=== PATIENT | female | born 1980 | race Caucasian/White ===

== ENCOUNTER 2016-08-30 08:41 | Emergency (ER) | payer OTHER ==
[2016-08-30 08:53] VITALS: BP 171/108
[2016-08-30] MEDS ORDERED: ALBUTEROL SULFATE HFA (90 MCG/PUFF) 8 GM MDI (1 MDI/ER DISP) IH ONE (09:59)
[2016-08-30] MEDS ORDERED: PENICILLIN V POTASSIUM 500 MG TABLET PO ONE (09:59)
[2016-08-30] MEDS ORDERED: PREDNISONE 20 MG TABLET PO ONE (09:59)
--- NOTE | 2016-08-30 10:13 | ER Document Report ---
ED General - General Chief Complaint: Sore Throat Stated Complaint: SORE THROAT TRAVEL OUTSIDE OF THE [place] IN LAST 30 DAYS: No - HPI Patient complains to provider of: cough congestion sore throat Notes: Patient coming in for evaluation of cough congestion sore throat. Patient also states that she has a dental abscess proximal and tooth #20 patient states that she popped the abscess at home did have positive posterior patient states she is waiting for dental referral. Sick contacts around her . Patient denies any recent travel patient is a smoker. States nonproductive cough feeling of unwell states she's been taking [id number] Sudafed patient states he does have a history of hypertension however did not take her blood pressure medication this morning. - Related Data Allergies/Adverse Reactions: sulfamethoxazole [From Bactrim] Allergy (Severe, Verified 08/30/16 08:53) VOMITING propoxyphene napsylate [From Darvocet-N 100] Allergy (Verified 08/30/16 08:53) bladder infection trimethoprim [From Bactrim] Allergy (Verified 08/30/16 08:53) VOMITING Past Medical History - Social History Smoking Status: Current Every Day Smoker Chew tobacco use (# tins/day): No Frequency of alcohol use: None Drug Abuse: None Family History: Reviewed & Not Pertinent, CAD, CVA, DM, Malignancy Patient has suicidal ideation: No Patient has homicidal ideation: No - Past Medical History Cardiac Medical History: Reports: Hx Hypertension - BP meds x15 years, Hx of high BP during Denies: Hx Heart Attack Pulmonary Medical History: Reports: Hx Asthma Denies: Hx Bronchitis, Hx COPD, Hx Pneumonia Neurological Medical History: Reports: Hx Seizures - last time over year ago Renal/ Medical History: Denies: Hx Peritoneal Dialysis Musculoskeltal Medical History: Reports Hx Arthritis - Bilateral Knees and elbows, Reports Hx Fibromyalgia Past Surgical History: Reports: Hx Appendectomy, Hx Section - x2, Hx Cholecystectomy, Hx Herniorrhaphy, Hx Tubal Ligation - Immunizations Immunizations up to date: Yes Hx Diphtheria, Pertussis, Tetanus Vaccination: Yes Review of Systems - Review of Systems Constitutional: No symptoms reported EENT: Other - Cough congestion sore throat Cardiovascular: No symptoms reported Respiratory: No symptoms reported Gastrointestinal: No symptoms reported Genitourinary: No symptoms reported Female Genitourinary: No symptoms reported Musculoskeletal: No symptoms reported Skin: No symptoms reported Hematologic/Lymphatic: No symptoms reported Neurological/Psychological: No symptoms reported -: Yes All other systems reviewed and negative Physical Exam - Vital signs Vitals: Temp Pulse Resp BP Pulse Ox 98.3 F 99 20 171/108 H 94 08/30/16 08:51 08/30/16 08:51 08/30/16 08:51 08/30/16 08:51 08/30/16 08:51 Interpretation: Normal - General General appearance: Appears well, Alert - HEENT Head: Normocephalic, Atraumatic Eyes: Normal Conjunctiva: Normal Cornea: Normal Extraocular movements intact: Yes Eyelashes: Normal Pupils: PERRL Ears: Normal External canal: Normal Tympanic membrane: Normal Mucous membranes: Normal Teeth diagram: 1 - Area cellulitis and abscess formation poor dentition throughout Pharynx: Normal Neck: Normal - Respiratory Respiratory status: No respiratory distress Chest status: Nontender Breath sounds: Wheezing Chest palpation: Normal - Cardiovascular Rhythm: Regular Heart sounds: Normal auscultation Murmur: No - Abdominal Inspection: Normal Distension: No distension Bowel sounds: Normal Tenderness: Nontender Organomegaly: No organomegaly - Back Back: Normal, Nontender - Extremities General upper extremity: Normal inspection, Nontender, Normal color, Normal ROM , Normal temperature General lower extremity: Normal inspection, Nontender, Normal color, Normal ROM , Normal temperature, Normal weight bearing. No: Jimmy's sign - Neurological Neuro grossly intact: Yes Cognition: Normal Orientation: AAOx4 Mani Coma Scale Eye Opening: Spontaneous Mcgill Coma Scale Verbal: Oriented Mcgill Coma Scale Motor: Obeys Commands Mcgill Coma Scale Total: 15 Speech: Normal Motor strength normal: LUE, RUE, LLE, RLE Sensory: Normal - Psychological Associated symptoms: Normal affect, Normal mood - Skin Skin Temperature: Warm Skin Moisture: Dry Skin Color: Normal Course - Re-evaluation Re-evalutation: 08/30/16 15:19 Patient swallows returned negative. More likely patient has a viral URI. Patient was started on Pen-Vee K for her dental cellulitis and abscess formation. Patient is encouraged follow-up with dentist. Patient's encouraged to stop smoking will treat patient with bronchodilators and steroids for her wheezing. - Vital Signs Vital signs: Temp Pulse Resp BP Pulse Ox 98.3 F 99 20 171/108 H 94 08/30/16 08:51 08/30/16 08:51 08/30/16 08:51 08/30/16 08:51 08/30/16 08:51 Discharge - Discharge Clinical Impression: Dental abscess, Bronchitis Condition: Good Disposition: HOME, SELF-CARE Instructions: Sore Throat ([facility]), Bronchitis With Bronchospasm (Wheezing) ([facility]) , Dental Infection or Abscess ([facility]), Dentist Additional Instructions: Take antibiotics as prescribed for your dental abscess. There examination days consistent with bronchitis. Please use the inhaler that we gave you here in ER 2 puffs every 4 hours for the next 5 days. Please take the steroids as directed. Prescriptions: Penicillin V Potassium [Penicillin Vk 500 mg Tablet] 500 mg PO BID #20 tablet Prednisone [Deltasone 20 mg Tablet] 3 tab PO DAILY 5 Days Forms: Return to Work Referrals: MELLY MACKEY MD [Primary Care Provider] - Follow up as needed
== END 2016-08-30 10:31 | disposition home or self-care (01) ==
LOC: ER 08:41
DX: K04.7 Periapical abscess without sinus (principal); J40 Bronchitis, not specified as acute or chronic; J02.9 Acute pharyngitis, unspecified; F17.200 Nicotine dependence, unspecified, uncomplicated; I10 Essential (primary) hypertension; Z88.3 Allergy status to other anti-infective agents; Z90.49 Acquired absence of other specified parts of digestive tract; Z98.51 Tubal ligation status
CPT/HCPCS: 99283; 87070; 87880; 87077; 87804; J7512; J3490

== ENCOUNTER 2016-11-03 18:01 | Emergency (ER) | payer SELFPAY ==
[2016-11-03 18:34] VITALS: BP 170/85
[2016-11-03] MEDS ORDERED: OXYCODONE-ACETAMINOPHEN 5-325 MG TABLET PO ONE (20:22)
[2016-11-03] MEDS ORDERED: DIPH/PERTUSS(ACELL)/TETANUS VAC/PF 0.5 ML SYR (>=10YO) IM ONE (20:23)
[2016-11-03] MEDS ORDERED: LIDOCAINE 1%/EPINEPHRINE INJ 20 ML VIAL INJ ONE (20:23)
--- NOTE | 2016-11-03 20:25 | ER Document Report ---
ED Fall - General Chief Complaint: Fall Stated Complaint: FALL/RIGHT SHOULDER,LEG PAIN Time seen by provider: 20:15 Notes: Patient is a 36-year-old female that comes emergency department for chief complaint of a fall injury, she states that she tripped on a step, she scraped her blair on the right side, landed on her right knee causing a wound, and she fell forward causing impact an injury to her shoulder and right collarbone. She denies hitting her head. She denies loss of consciousness, neck pain, focal numbness or weakness, incontinence. She denies chest pain or abdominal pain. She is not on a blood thinner. Her tetanus is not up-to-date within 5 years. TRAVEL OUTSIDE OF THE [place] IN LAST 30 DAYS: No - Related data Allergies/Adverse Reactions: sulfamethoxazole [From Bactrim] Allergy (Severe, Verified 11/03/16 18:25) VOMITING propoxyphene napsylate [From Darvocet-N 100] Allergy (Verified 11/03/16 18:25) bladder infection trimethoprim [From Bactrim] Allergy (Verified 11/03/16 18:25) VOMITING Past Medical History - General Information source: Patient - Social History Smoking Status: Never Smoker Drug Abuse: None Lives with: Spouse/Significant other Family History: Reviewed & Not Pertinent, CAD, CVA, DM, Malignancy Patient has suicidal ideation: No Patient has homicidal ideation: No - Past Medical History Cardiac Medical History: Reports: Hx Hypertension - BP meds x15 years, Hx of high BP during Denies: Hx Heart Attack Pulmonary Medical History: Reports: Hx Asthma Denies: Hx Bronchitis, Hx COPD, Hx Pneumonia Neurological Medical History: Reports: Hx Seizures - last time over year ago Renal/ Medical History: Denies: Hx Peritoneal Dialysis Musculoskeltal Medical History: Reports Hx Arthritis - Bilateral Knees and elbows, Reports Hx Fibromyalgia Past Surgical History: Reports: Hx Appendectomy, Hx Section - x2, Hx Cholecystectomy, Hx Herniorrhaphy, Hx Tubal Ligation - Immunizations Immunizations up to date: Yes Hx Diphtheria, Pertussis, Tetanus Vaccination: Yes Review of Systems - Review of Systems Constitutional: No symptoms reported EENT: No symptoms reported Cardiovascular: No symptoms reported Respiratory: No symptoms reported Gastrointestinal: No symptoms reported Genitourinary: No symptoms reported Female Genitourinary: No symptoms reported Musculoskeletal: See HPI Skin: See HPI Hematologic/Lymphatic: No symptoms reported Neurological/Psychological: No symptoms reported Physical Exam - Vital signs Vitals: Temp Pulse Resp BP Pulse Ox 98.9 F 98 16 170/85 H 94 11/03/16 18:25 11/03/16 18:25 11/03/16 18:25 11/03/16 18:25 11/03/16 18:25 Interpretation: Normal - General General appearance: Appears well, Alert In distress: None - Patient is awake and alert, she moves somewhat stiffly and moves pain, she is wearing a fashioned sling for her right arm - HEENT Head: Normocephalic, Atraumatic. No: Abrasions, Ecchymosis, Open wounds Eyes: Normal Conjunctiva: Normal Extraocular movements intact: Yes Eyelashes: Normal Pupils: PERRL Mouth/Lips: Normal Mucous membranes: Normal Pharynx: Normal Neck: Normal - Respiratory Respiratory status: No respiratory distress Chest status: Nontender Breath sounds: Normal. No: Decreased air movement, Wheezing Chest palpation: Normal - Cardiovascular Rhythm: Regular. No: Tachycardia Heart sounds: Normal auscultation, S1 appreciated, S2 appreciated Murmur: No - Abdominal Inspection: Normal Distension: No distension Bowel sounds: Normal Tenderness: Nontender Organomegaly: No organomegaly - Back Back: Normal, Nontender - Extremities General upper extremity: Other - Patient is tender over the right clavicle and over the right proximal humerus, pain when moving the shoulder, small abrasion over the elbow but no bony tenderness and full range of motion of the elbow, normal wrist exam, normal distal neurovascular exam. General lower extremity: Other - Small abrasions over the right anterior distal tibia, normal ankle and foot exam, there is a wound over the patella that is about 2 cm in length, partial-thickness, vertical there is small amount of ecchymosis around the wound over the knee. No hip tenderness. No other lower extremity abnormalities noted - Neurological Neuro grossly intact: Yes Cognition: Normal Orientation: AAOx4 Mani Coma Scale Eye Opening: Spontaneous Mani Coma Scale Verbal: Oriented [place] Coma Scale Motor: Obeys Commands [place] Coma Scale Total: 15 Speech: Normal Motor strength normal: LUE, RUE, LLE, RLE Sensory: Normal - Psychological Associated symptoms: Normal affect, Normal mood - Skin Skin Temperature: Warm Skin Moisture: Dry Skin Color: Normal Course - Re-evaluation Re-evalutation: X-ray imaging of the shoulder, clavicle, knee with no acute abnormalities. Patient has pain over the shoulder and difficult range of motion, suspect rotator cuff injury. Patient requesting sling for comfort, this was provided for her, demonstrated range of motion exercises and cautioned against wearing at all times because of frozen shoulder. Wounds clean, repaired, dressed, discussed wound care, return precautions. Patient states understanding and agreement. - Vital Signs Vital signs: Temp Pulse Resp BP Pulse Ox 98.9 F 98 16 170/85 H 94 11/03/16 18:25 11/03/16 18:25 11/03/16 18:25 11/03/16 18:25 11/03/16 18:25 Procedures - Immobilization right arm Pre-Proc Neuro Vasc Exam: Normal Immobilizer type: Sling Performed by: PCT Post-Proc Neuro Vasc Exam: Normal Alignment checked and good: Yes - Laceration/Wound Repair right knee #1 Wound length (cm): 2 Wound's Depth, Shape: Irregular, Flap Laceration pre-procedure: Sterile PPE donned, Sterile drapes applied, Other - Surgical cleanser Anesthetic type: 1% Lidocaine Volume Anesthetic (mLs): 6 Wound explored: Clean, No foreign body removed Irrigated w/ Saline (mLs): 50 Wound Repaired With: Sutures Suture Size/Type: 4:0, Nylon Number of Sutures: 3 Post-procedure wound care: Sterile dressing applied Post-procedure NV exam normal: Yes Complications: No right knee #2 Wound length (cm): 1.5 Wound's Depth, Shape: Linear Laceration pre-procedure: Sterile PPE donned, Sterile drapes applied, Other - Surgical cleanser Anesthetic type: 1% Lidocaine Volume Anesthetic (mLs): 3 Wound explored: Clean, No foreign body removed Irrigated w/ Saline (mLs): 40 Wound Repaired With: Sutures Suture Size/Type: 4:0, Nylon Number of Sutures: 3 Layer Closure?: No Post-procedure wound care: Sterile dressing applied Post-procedure NV exam normal: Yes Complications: No Discharge - Discharge Clinical Impression: Skin abrasion Fall Qualifiers: Encounter type: initial encounter Qualified Code(s): W19.XXXA - Unspecified fall, initial encounter Knee laceration Qualifiers: Encounter type: initial encounter Laterality: right Qualified Code(s): S81.011A - Laceration without foreign body, right knee, initial encounter Right shoulder pain Qualifiers: Chronicity: acute Qualified Code(s): M25.511 - Pain in right shoulder Right knee pain Qualifiers: Chronicity: acute Qualified Code(s): M25.561 - Pain in right knee Condition: Stable Additional Instructions: Imaging does not show fracture or dislocation. Wear the sling for comfort, ice your shoulder and your knee, take the arm out of the sling and performed the range of motion exercises regularly as discussed to begin to regain full range of motion. Follow-up with orthopedics for additional treatment. Sutures should come out in 7-10 days. Keep clean with soap and water, apply thin film of topical antibiotic with dressing. Return to the emergency department for any concerning symptoms including signs of infection such as redness, swelling, fever, etc. Prescriptions: Cyclobenzaprine HCl [Flexeril 10 mg Tablet] 10 mg PO TIDP PRN #20 tab PRN Reason: Forms: Elevated Blood Pressure Referrals: MELLY MACKEY MD [Primary Care Provider] - Follow up as needed ZAC HENSON MD [ACTIVE STAFF] - Follow up as needed
[2016-11-03] MEDS ORDERED: HYDROCODONE/ACETAMINOPHEN 5-325 MG 6 TAB/DSPK PO PRN (22:32)
== END 2016-11-03 23:00 | disposition home or self-care (01) ==
LOC: ER 18:01
PROC: 0HQKXZZ Repair Right Lower Leg Skin, External Approach (ICD-10-PCS; principal; 2016-11-03)
DX: S81.011A Laceration without foreign body, right knee, initial encounter (principal); S50.311A Abrasion of right elbow, initial encounter; S80.811A Abrasion, right lower leg, initial encounter; M25.511 Pain in right shoulder; M25.561 Pain in right knee; W10.9XXA Fall (on) (from) unspecified stairs and steps, initial encounter; I10 Essential (primary) hypertension; Z88.1 Allergy status to other antibiotic agents; Z88.5 Allergy status to narcotic agent; J45.909 Unspecified asthma, uncomplicated
CPT/HCPCS: 99283; 90471; 73564; 73030; 90715; 12002; L3650; J3490

== ENCOUNTER 2018-09-05 14:06 | Emergency (ER) | payer OTHER ==
[2018-09-05] MEDS ORDERED: MORPHINE SULFATE 10 MG/ML INJ IV ONE (14:32)
[2018-09-05] MEDS ORDERED: ONDANSETRON HCL INJ/PF 4 MG/2 ML SDV IV ONE (14:32)
[2018-09-05 15:03] LABS: ABSOLUTE EOSINOPHILS # (AUTO) 0.2 10^3/uL (0.0-0.6); ABSOLUTE LYMPHOCYTES (AUTO) 2.2 10^3/uL (0.5-4.7); ABSOLUTE MONOCYTES (AUTO) 0.4 10^3/uL (0.1-1.4); ABSOLUTE NEUT (AUTO) 5.1 10^3/uL (1.7-8.2); BASOPHILS % (AUTO) 0.2 % (0-2); EOSINOPHILS % (AUTO) 2.1 % (0-6); HEMATOCRIT 36.4 % (36.0-47.0); HEMOGLOBIN 11.8 g/dL (12.0-15.5); LYMPHOCYTES % (AUTO) 28.1 % (13-45); MEAN CORPUSCULAR HEMOGLOBIN 25.8 pg (27.0-33.4); MEAN CORPUSCULAR HGB CONC 32.4 g/dL (32.0-36.0); MEAN CORPUSCULAR VOLUME 80 fl (80-97); MONOCYTES % (AUTO) 4.7 % (3-13); PLATELET COUNT 231 10^3/uL (150-450); RED BLOOD COUNT 4.57 10^6/uL (3.72-5.28); RED CELL DISTRIBUTION WIDTH 17.5 % (11.5-14.0); SEGMENTED NEUTROPHILS % (AUTO) 64.9 % (42-78); TOTAL CELLS COUNTED % (AUTO) 100 %; WHITE BLOOD COUNT 7.8 10^3/uL (4.0-10.5)
[2018-09-05 15:21] LABS: ANION GAP 6 (5-19); BLOOD UREA NITROGEN 11 mg/dL (7-20); CALCIUM 8.7 mg/dL (8.4-10.2); CARBON DIOXIDE 34 mmol/L (22-30); CHLORIDE 101 mmol/L (98-107); GLUCOSE 139 mg/dL (75-110); POTASSIUM 4.1 mmol/L (3.6-5.0); SODIUM 140.9 mmol/L (137-145)
[2018-09-05 15:24] LABS: ALCOHOL < 10 mg/dL (NONE DETECTED)
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
[2018-09-05 18:32] VITALS: BP 150/110
[2018-09-05] MEDS ORDERED: IBUPROFEN 800 MG TABLET PO ONE (18:37)
--- NOTE | 2018-09-05 22:19 | EKG REPORT ---
SEVERITY:- ABNORMAL ECG - SINUS RHYTHM NONSPECIFIC T ABNORMALITIES, LATERAL LEADS BORDERLINE PROLONGED QT INTERVAL : Confirmed by: Figueroa Bo 05-Sep-2018 22:18:15
== END 2018-09-05 18:49 | disposition home or self-care (01) ==
LOC: ER 14:06
DX: S20.211A Contusion of right front wall of thorax, initial encounter (principal); S86.811A Strain of other muscle(s) and tendon(s) at lower leg level, right leg, initial encounter; R10.32 Left lower quadrant pain; L03.211 Cellulitis of face; R22.0 Localized swelling, mass and lump, head; K42.9 Umbilical hernia without obstruction or gangrene; V49.40XA Driver injured in collision with unspecified motor vehicles in traffic accident, initial encounter; Z88.3 Allergy status to other anti-infective agents; F17.200 Nicotine dependence, unspecified, uncomplicated; I10 Essential (primary) hypertension; Z90.49 Acquired absence of other specified parts of digestive tract; Z98.51 Tubal ligation status
CPT/HCPCS: 93005; 99284; 96374; 96375; 36415; 80307; 84703; 85025; 80048; 73564; 70450; 71260; 72125; 74177; 93010; J2270; J2405

== ENCOUNTER 2019-12-03 13:34 | Emergency (ER) | payer OTHER ==
[2019-12-03] MEDS ORDERED: NORMAL SALINE 1000 ML 1,000 ML IV ONE (14:24)
[2019-12-03] MEDS ORDERED: PROCHLORPERAZINE EDISYLATE INJ 10 MG/2 ML VIAL IV ONE (14:24)
[2019-12-03] MEDS ORDERED: KETOROLAC TROMETHAMINE INJ/PF 30 MG/1 ML SDV IV ONE (14:25)
--- NOTE | 2019-12-03 14:26 | ER Document Report ---
ED GI/ - General Chief Complaint: Nausea/Vomiting/Diarrhea Stated Complaint: NAUSEA,HEADACHE Time Seen by Provider: 12/03/19 14:05 Primary Care Provider: GEORGE GAMING FNP-C [Primary Care Provider] - Follow up as needed Mode of Arrival: Ambulatory Information source: Patient Notes: 39-year-old female presents to the emergency department with a 4-day history of nausea vomiting diarrhea. She states she is also now developed a headache. She has a history of migraines apparently this headache does not fit the normal migraine pattern. She states that she has had bilious vomiting yellowish in color no blood noted. She is also had a multiple episodes of diarrhea with watery stools and no blood noted. She complains of some cramping pain with bowel movements however no other significant abdominal pain she has a anterior ventral hernia which she states is been about the same occasionally slides out and is painful with movement and or lifting. She denies fever. TRAVEL OUTSIDE OF THE [place] IN LAST 30 DAYS: No - Related Data Allergies/Adverse Reactions: sulfamethoxazole [From Bactrim] Allergy (Severe, Verified 11/03/16 18:25) VOMITING propoxyphene napsylate [From Darvocet-N 100] Allergy (Verified 11/03/16 18:25) bladder infection trimethoprim [From Bactrim] Allergy (Verified 11/03/16 18:25) VOMITING Past Medical History - Social History Smoking Status: Current Every Day Smoker Family History: Reviewed & Not Pertinent, CAD, CVA, DM, Malignancy Patient has homicidal ideation: No - Past Medical History Cardiac Medical History: Reports: Hx Hypertension - BP meds x15 years, Hx of high BP during Denies: Hx Heart Attack Pulmonary Medical History: Reports: Hx Asthma Denies: Hx Bronchitis, Hx COPD, Hx Pneumonia Neurological Medical History: Reports: Hx Seizures - last time over year ago Renal/ Medical History: Denies: Hx Peritoneal Dialysis Musculoskeletal Medical History: Reports Hx Arthritis - Bilateral Knees and elbows, Reports Hx Fibromyalgia Past Surgical History: Reports: Hx Appendectomy, Hx Section - x2, Hx Cholecystectomy, Hx Herniorrhaphy, Hx Tubal Ligation - Immunizations Immunizations up to date: Yes Hx Diphtheria, Pertussis, Tetanus Vaccination: Yes Review of Systems - Review of Systems Notes: Constitutional: Negative for fever. HENT: Negative for sore throat. Eyes: Negative for visual changes. Cardiovascular: Negative for chest pain. Respiratory: Negative for shortness of breath. Gastrointestinal: + Nausea and vomiting, + diarrhea Genitourinary: Negative for dysuria. Musculoskeletal: Negative for back pain. Skin: Negative for rash. Neurological: Negative for headaches, weakness or numbness. 10 point ROS negative except as marked above and in HPI. Physical Exam - Vital signs Vitals: Temp Pulse Resp BP Pulse Ox 98.6 F 111 H 16 165/83 H 96 12/03/19 13:45 12/03/19 13:45 12/03/19 13:45 12/03/19 13:45 12/03/19 13:45 - Notes Notes: PHYSICAL EXAMINATION: Physical Exam: General: Well-nourished well-developed 39-year-old female in no acute distress HEENT: NC/AT, pupils equal round and reactive to light, MM moist,nares clear, oropharynx clear, airway patent Neck: supple, no adenopathy, no masses. Good range of motion Lungs: clear, no wheezing, no rales no rhonchi CVS: Regular rate and rhythm no murmur gallop or rub Abdomen: Soft, active, nontender, + a right mid abdominal anterior wall ventral hernia easily reduced and nontender., No hepatosplenomegaly Ext: No edema, clubbing or cyanosis. Neuro: Alert and responsive, moving all 4 extremities on command, cranial nerves intact, no focal findings Skin: Intact no open lesions, no rash PSYCH: Normal mood, normal affect. Course - Re-evaluation Re-evalutation: 12/03/19 16:03 Patient received Compazine and IV fluids, feels much better. CBC and labs were reviewed, patient is normal findings with a normal CT scan, ventral hernia noted. She has been discharged with Zofran for nausea and instructions on diet modifications with diarrhea nausea and vomiting. She is also instructed to follow-up with her primary care doctor as needed. - Vital Signs Vital signs: Temp Pulse Resp BP Pulse Ox 98.6 F 112 H 18 165/83 H 95 12/03/19 14:01 12/03/19 14:00 12/03/19 14:00 12/03/19 14:00 12/03/19 14:00 - Laboratory Result Diagrams: 12/03/19 13:55 12/03/19 13:55 Laboratory results interpreted by me: 12/03/19 12/03/19 13:55 13:55 WBC 11.9 H RBC 5.69 H MCV 77 L MCH 24.8 L RDW 19.4 H Absolute Neuts (auto) 8.5 H Glucose 139 H - Diagnostic Test Radiology reviewed: Image reviewed, Reports reviewed - CT abdomen and pelvis with IV contrast: Right ventral hernia with fatty material, no obstruction and no ischemic changes. CT scan is otherwise normal. Discharge - Discharge Clinical Impression: Nausea vomiting and diarrhea, Gastroenteritis, Ventral hernia without obstructi on or gangrene Condition: Good Disposition: HOME, SELF-CARE Instructions: Antinausea Medication ([facility]), Gastroenteritis (adult) ([facility], [facility]) Additional Instructions: You were seen in the emergency department with nausea vomiting and diarrhea likely viral gastroenteritis. Please modify your diet with clear liquids and light carbohydrates until the diarrhea has completely cleared. You may use Zofran for nausea, push fluids, follow-up with your primary care doctor as needed. If your symptoms are worsening or if you have other concerns, you may return to the emergency department for further evaluation and treatment. HOME CARE INSTRUCTIONS & INFORMATION: Thank you for choosing us for your medical needs. We hope you're satisfied with the care you received. After you leave, you must properly care for your problem and, at the same time, observe its progress. Any condition can change. Some illnesses can change rapidly over hours or days. If your condition worsens, return to the Emergency Department or see your physician promptly. ABOUT YOUR X-RAYS AND EKG'S: If you had an EKG or X-rays taken, they have been read by the Emergency Physician. The X-rays and EKG's will also be read by a Radiologist or Industrial Design Engineer within 24 hours. If discrepancies are noted, you will be notified by telephone. Please be certain the ED has a correct telephone number & address where you can be reached. Also, realize that some fractures or abnormalities do not show up on initial X-rays. If your symptoms continue, see your physician. ABOUT YOUR LABORATORY TEST: If you had laboratory tests, the results have been reviewed by the Emergency Physician. Some test results (for example cultures) may not be available for several days. You will be contacted if any test result shows you need additional treatment. Please be certain the ED has a correct telephone number and address where you can be reached. ABOUT YOUR MEDICATIONS: You will receive instructions on how to take your medicine on the prescription label you receive. Additional information may be provided by the Pharmacy. If you have questions afterwards, call the ED for clarification or further instructions. Some prescribed medications may cause drowsiness. Do not perform tasks such as driving a car or operating machinery w ithout consulting your Pharmacist. If you feel you need a refill of pain medication, your condition will need re-evaluation. Please do not call for a refill of any medication. ABOUT YOUR SIGNATURE: Signature of this document acknowledges to followin. Understanding that you received emergency treatment and that you may be released before al medical problems are known or treated. Please be certain the ED has a correct phone number & address where you can be reached. 2. Acknowledgement that you will arrange for follow-up care as recommended. 3. Authorization for the Emergency Physician to provide information to your follow-up Physician in order to maximize your care. AT ANY TIME, IF YOUR SYMPTOMS CHANGE SIGNIFICANTLY OR WORSEN OR YOU DEVELOP NEW SYMPTOMS, RETURN TO THE EMERGENCY DEPARTMENT IMMEDIATELY FOR RE-EVALUATION. OUR GOAL IS TO PROVIDE EXCELLENT MEDICAL CARE! WE HOPE THAT WE HAVE MET YOUR EXPECTATIONS DURING YOUR EMERGENCY DEPARTMENT VISIT AND THAT YOU FEEL YOU HAVE RECEIVED EXCELLENT CARE! Prescriptions: Ondansetron [Zofran Odt 4 mg Tablet] 1 - 2 tab PO Q4H PRN #[id number] tab.rapdis PRN Reason: For Nausea/Vomiting Referrals: GEORGE GAMING FNP-C [Primary Care Provider] - Follow up as needed
[2019-12-03 14:30] LABS: ABSOLUTE BASOPHILS # (AUTO) 0.1 10^3/uL (0.0-0.2); ABSOLUTE EOSINOPHILS # (AUTO) 0.2 10^3/uL (0.0-0.6); ABSOLUTE LYMPHOCYTES (AUTO) 2.7 10^3/uL (0.5-4.7); ABSOLUTE MONOCYTES (AUTO) 0.5 10^3/uL (0.1-1.4); ABSOLUTE NEUT (AUTO) 8.5 10^3/uL (1.7-8.2); BASOPHILS % (AUTO) 0.5 % (0-2); EOSINOPHILS % (AUTO) 1.6 % (0-6); HEMOGLOBIN 14.1 g/dL (12.0-15.5); LYMPHOCYTES % (AUTO) 22.4 % (13-45); MEAN CORPUSCULAR HEMOGLOBIN 24.8 pg (27.0-33.4); MEAN CORPUSCULAR HGB CONC 32.1 g/dL (32.0-36.0); MEAN CORPUSCULAR VOLUME 77 fl (80-97); MONOCYTES % (AUTO) 4.2 % (3-13); PLATELET COUNT 366 10^3/uL (150-450); RED BLOOD COUNT 5.69 10^6/uL (3.72-5.28); RED CELL DISTRIBUTION WIDTH 19.4 % (11.5-14.0); SEGMENTED NEUTROPHILS % (AUTO) 71.3 % (42-78); TOTAL CELLS COUNTED % (AUTO) 100 %; WHITE BLOOD COUNT 11.9 10^3/uL (4.0-10.5)
[2019-12-03 14:45] LABS: ALBUMIN 4.3 g/dL (3.5-5.0); ALKALINE PHOSPHATASE 107 U/L (38-126); ANION GAP 9 (5-19); ASPARTATE AMINO TRANSFERASE 21 U/L (14-36); BILIRUBIN,DIRECT 0.1 mg/dL (0.0-0.4); BILIRUBIN,TOTAL 0.4 mg/dL (0.2-1.3); BLOOD UREA NITROGEN 9 mg/dL (7-20); CARBON DIOXIDE 30 mmol/L (22-30); CHLORIDE 99 mmol/L (98-107); GLUCOSE 139 mg/dL (75-110); POTASSIUM 4.2 mmol/L (3.6-5.0)
--- NOTE | 2019-12-03 15:39 | RADIOLOGY REPORT (SQ) ---
EXAM DESCRIPTION: CT ABD/PELVIS WITH IV ONLY IMAGES COMPLETED DATE/TIME: 12/03/2019 3:19 pm REASON FOR STUDY: abdominal pain COMPARISON: CT of the abdomen pelvis with contrast from 09/05/2018. TECHNIQUE: CT scan of the abdomen and pelvis performed using helical scanning technique with dynamic intravenous contrast injection. No oral contrast. Images reviewed with lung, soft tissue, and bone windows. Reconstructed coronal and sagittal MPR images reviewed. Delayed images for evaluation of the urinary system also acquired. All images stored on PACS. All CT scanners at this facility use dose modulation, iterative reconstruction, and/or weight based d osing when appropriate to reduce radiation dose to as low as reasonably achievable (ALARA). [facility]: Dose Right [facility]: CareDose [facility]: Dose Right [facility]: Teradose 4D [facility]: [employer] CONTRAST TYPE AND DOSE: Contrast/concentration: Isovue 350.00 mg/ml; Total Contrast Delivered: 99.0 ml; Total Saline Delivered: 57.0 ml RENAL FUNCTION: GFR > 60. RADIATION DOSE: CT Rad equipment meets quality standard of care and radiation dose reduction techniq ues were employed. CTDIvol: 19.2 - 21.1 mGy. DLP: 2332 mGy-cm. LIMITATIONS: None. FINDINGS: LOWER CHEST: No acute findings. LIVER: The relative hypoattenuation hepatic parenchyma compared to the splenic parenchyma on the port al venous phase is suggestive and aligned hepatic steatosis. The portal veins are patent. There is no hepatic mass. SPLEEN: The spleen is borderline enlarged and it measures 13.8 cm in AP diameter. PANCREAS: No acute abnormality of the pancreas. GALLBLADDER: No abnormality that is apparent on CT. ADRENAL GLANDS: No mass or asymmetry. RIGHT KIDNEY AND URETER: No solid mass, hydronephrosis, nephrolithiasis, hydroureter or ureterolithia sis. LEFT KIDNEY AND URETER: No solid mass, hydronephrosis, nephrolithiasis, hydroureter or ureterolithia sis. AORTA AND VESSELS: No aneurysm or dissection of the abdominal aorta. RETROPERITONEUM: No retroperitoneal adenopathy, hemorrhage or mass. BOWEL AND PERITONEAL CAVITY: No bowel obstruction, bowel wall thickening or pericolonic/ perienteric inflammation. No mesenteric adenopathy, free intraperitoneal fluid or mesenteric/ omental inflammati on. APPENDIX: Unable to identify the appendix. There is no pericecal inflammation. PELVIS: No abnormality of the uterus or adnexa that is apparent on CT. The urinary bladder is disten ded and normal in appearance. ABDOMINAL WALL: Paramedian ventral hernia that contains fat and a portion of the transverse colon. BONES: No fracture or osseous lesion. OTHER: No other finding. IMPRESSION: 1. No acute intra-abdominal abnormality. 2. Paramedian ventral hernia that contains fat and a portion of the transverse colon. There is no as sociated obstruction. 3. Hepatic steatosis. TECHNICAL DOCUMENTATION: JOB ID: [id number] Quality ID # [id number]: Final reports with documentation of one or more dose reduction techniques (e.g., Au tomated exposure control, adjustment of the mA and/or kV according to patient size, use of iterative reconstruction technique) 2010 [employer]- All Rights Reserved Reading location - IP/workstation name: [email or web address]
[2019-12-03 16:15] LABS: APPEARANCE,URINE CLEAR; BILIRUBIN,URINE NEGATIVE (NEGATIVE); COLOR,URINE YELLOW; GLUCOSE, URINE NEGATIVE (NEGATIVE); KETONES,URINE NEGATIVE (NEGATIVE); PROTEIN,URINE NEGATIVE (NEGATIVE); UROBILINOGEN,URINE NEGATIVE mg/dL (<2.0)
[2019-12-03 16:27] VITALS: BP 165/79
[2019-12-03 16:47] LABS: URINE SPECIFIC GRAVITY > 1.060
== END 2019-12-03 16:26 | disposition home or self-care (01) ==
LOC: ER 13:34
DX: K52.9 Noninfective gastroenteritis and colitis, unspecified (principal); K43.9 Ventral hernia without obstruction or gangrene; R11.2 Nausea with vomiting, unspecified; R51 Headache; Z88.2 Allergy status to sulfonamides; Z88.8 Allergy status to other drugs, medicaments and biological substances; F17.200 Nicotine dependence, unspecified, uncomplicated; I10 Essential (primary) hypertension; J45.909 Unspecified asthma, uncomplicated; Z79.899 Other long term (current) drug therapy
CPT/HCPCS: 99285; 96361; 96374; 36415; 83690; 85025; 80053; 81001; 74177; J1885; J0780; J7030